=== PATIENT | female | born 1990 | race Caucasian/White ===

== ENCOUNTER 2018-01-17 13:19 | Emergency (ER) | payer OTHER ==
[2018-01-17 13:57] LABS: BILIRUBIN,URINE NEGATIVE (NEG); CLARITY,URINE CLEAR; COLOR,URINE YELLOW; GLUCOSE,URINE NEGATIVE (NEG); NITRITE,URINE NEGATIVE (NEG); PROTEIN,URINE NEGATIVE (NEG-TRACE)
[2018-01-17 13:58] LABS: URINE HCG POC HCG NEGATIVE (Negative)
[2018-01-17] MEDS ORDERED: diphenhydrAMINE 50 MG/ML VIAL (14:09)
[2018-01-17] MEDS ORDERED: METOCLOPRAMIDE HCL 10 MG/2 ML VIAL. (14:10)
[2018-01-17 14:11] LABS: BACTERIA,URINE MOD /HPF (0-FEW); RBC,URINE 0 /HPF (0-2); SQUAMOUS EPITHELIAL CELL,UR MANY /LPF
[2018-01-17 14:45] LABS: ANION GAP 6 (6-14); BLOOD UREA NITROGEN 13 mg/dL (7-20); BUN/CREATININE RATIO 16 (6-20); CALCIUM 9.6 mg/dL (8.5-10.1); CARBON DIOXIDE 30 mmol/L (21-32); CHLORIDE 105 mmol/L (98-107); CREATININE 0.8 mg/dL (0.6-1.0); GFR 85.4; GLUCOSE 105 mg/dL (70-99); POTASSIUM 4.7 mmol/L (3.5-5.1); SODIUM 141 mmol/L (136-145)
[2018-01-17] MEDS: diphenhydrAMINE 50 MG/ML VIAL IVP (14:51)
[2018-01-17] MEDS: METOCLOPRAMIDE HCL 10 MG/2 ML VIAL. IV (14:51)
[2018-01-17] MEDS: IV NORMAL SALINE 1000ML BAG 1,000 ML IV (14:51)
[2018-01-17 14:54] LABS: ALBUMIN 4.3 g/dL (3.4-5.0); ALBUMIN/GLOBULIN RATIO 1.3 (1.0-1.7); ALK PHOS 34 U/L (46-116); ALT (SGPT) 21 U/L (14-59); AST (SGOT) 19 U/L (15-37); TOTAL BILIRUBIN 1.2 mg/dL (0.2-1.0); TOTAL PROTEIN 7.7 g/dL (6.4-8.2)
[2018-01-17 15:02] LABS: ADD MAN DIFF? NO
[2018-01-17 15:04] LABS: BASO % 0 % (0-3); EOS # 0.1 x10^3/uL (0.0-0.7); EOS % 1 % (0-3); HEMATOCRIT 40.1 % (36.0-47.0); LYMPH # 1.5 x10^3/uL (1.0-4.8); LYMPH % 17 % (24-48); MEAN CORPUSCULAR HEMOGLOBIN 33 pg (25-35); MEAN CORPUSCULAR HGB CONC 35 g/dL (31-37); MEAN CORPUSCULAR VOLUME 95 fL (79-100); MONO # 0.3 x10^3/uL (0.0-1.1); MONO % 4 % (0-9); NEUT # 6.6 x10^3uL (1.8-7.7); NEUT % 78 % (31-73); PLATELET COUNT 230 x10^3/uL (140-400); RED BLOOD COUNT 4.22 x10^6/uL (3.50-5.40); RED CELL DISTRIBUTION WIDTH 13.4 % (11.5-14.5); WHITE BLOOD COUNT 8.5 x10^3/uL (4.0-11.0)
[2018-01-17] MEDS: KETOROLAC 30 MG/ML INJ. IV (16:15)
== END 2018-01-17 16:20 | disposition home or self-care (01) ==
LOC: ER 16:20
DX: R51 Headache (principal); N39.0 Urinary tract infection, site not specified
CPT/HCPCS: 36415; 70450; 80053; 81001; 81025; 85025; 96361; 96374; 96375; 99285-25; J1200; J1885; J2765; J7030

== ENCOUNTER 2018-10-24 06:19 | Day surgery (SDC) | payer OTHER ==
[~2018-10-24] VITALS: Ht 154.9 cm; Wt 63.5 kg
[~2018-10-24 06:19] MED LIST: NITR100C62 PO
[2018-10-24] MEDS ORDERED: IV NORMAL SALINE 1000ML BAG 1,000 ML IV SCH (06:41)
[2018-10-24 07:25] LABS: BASO % 0 % (0-3); EOS # 0.1 x10^3/uL (0.0-0.7); EOS % 1 % (0-3); HEMATOCRIT 36.8 % (36.0-47.0); HEMOGLOBIN 12.3 g/dL (12.0-15.5); LYMPH % 21 % (24-48); MEAN CORPUSCULAR HEMOGLOBIN 31 pg (25-35); MEAN CORPUSCULAR HGB CONC 33 g/dL (31-37); MEAN CORPUSCULAR VOLUME 93 fL (79-100); MONO # 0.5 x10^3/uL (0.0-1.1); MONO % 6 % (0-9); NEUT # 6.7 x10^3uL (1.8-7.7); NEUT % 72 % (31-73); PLATELET COUNT 236 x10^3/uL (140-400); RED BLOOD COUNT 3.94 x10^6/uL (3.50-5.40); RED CELL DISTRIBUTION WIDTH 13.3 % (11.5-14.5); WHITE BLOOD COUNT 9.3 x10^3/uL (4.0-11.0)
[2018-10-24 07:38] LABS: PROTHROMBIN TIME PATIENT 13.5 SEC (11.7-14.0)
[2018-10-24] MEDS ORDERED: KETOROLAC 30 MG/ML VIAL. IV ONE (07:45)
[2018-10-24] MEDS ORDERED: fentaNYL PF VIAL 100 MCG/2 ML VIAL ONE (07:53)
[2018-10-24] MEDS ORDERED: ONDANSETRON PF 4 MG/2 ML VIAL. ONE ×2 (07:53→10:06)
[2018-10-24 07:58] LABS: CREATININE 0.7 mg/dL (0.6-1.0); GFR 98.9; POTASSIUM 3.9 mmol/L (3.5-5.1)
[2018-10-24 08:04] LABS: ALBUMIN 3.8 g/dL (3.4-5.0); ALBUMIN/GLOBULIN RATIO 1.1 (1.0-1.7); TOTAL BILIRUBIN 0.9 mg/dL (0.2-1.0); TOTAL PROTEIN 7.4 g/dL (6.4-8.2)
--- NOTE | 2018-10-24 08:12 | PHYS DOC ---
Past Medical History Past Medical History: Other Additional Past Medical Histor: SUBSTANCE ABUSE Past Surgical History: No Surgical History Alcohol Use: Occasionally Drug Use: None Adult General Chief Complaint Chief Complaint: VAGINAL BLEEDING HPI HPI Patient is a 28 year old female presented to ER today for evaluation of pelvic pain and vaginal bleeding. Patient says her last menstrual period was on Aug 11 2018. Patient is . Patient started having spotting on last , she went to see her OB doctor at [facility], had a pelvic ultrasound done, did not show an IUP. Patient was told to have the expected miscarry at home. She woke up at 3 AM this morning with severe pelvic pain, vaginal bleeding. Patient passed a large round tissue at home and then lots of blood clots. She has severe pelvic cramping, coming in wave so she came in here for evaluation. Patient denies any fever. This is her first . Review of Systems Review of Systems Constitutional: Denies fever or chills [] Eyes: Denies change in visual acuity, redness, or eye pain [] HENT: Denies nasal congestion or sore throat [] Respiratory: Denies cough or shortness of breath [] Cardiovascular: No additional information not addressed in HPI [] GI: Denies abdominal pain, nausea, vomiting, bloody stools or diarrhea [] : Positive for pelvic pain, vaginal bleeding. Musculoskeletal: Denies back pain or joint pain [] Integument: Denies rash or skin lesions [] Neurologic: Denies headache, focal weakness or sensory changes [] Endocrine: Denies polyuria or polydipsia [] All other systems were reviewed and found to be within normal limits, except as documented in this note. Current Medications Current Medications Current Medications Medications (Trade) Dose Ordered Sig/[facility] Start Time Stop Time Status Last Admin Dose Admin Fentanyl Citrate (Fentanyl 2ml Vial) 50 mcg 1X ONCE 10/24/18 08:30 10/24/18 08:33 DC 10/24/18 08:38 50 MCG Ketorolac Tromethamine (Toradol 30mg Vial) 30 mg 1X ONCE 10/24/18 07:45 10/24/18 07:46 DC 10/24/18 07:46 30 MG Ondansetron HCl (Zofran) 4 mg 1X ONCE 10/24/18 08:30 10/24/18 08:33 DC 10/24/18 08:37 4 MG Sodium Chloride 1,000 ml @ 100 mls/hr Q10H 10/24/18 06:41 10/24/18 16:40 10/24/18 07:14 100 MLS/HR Allergies Allergies Allergies Coded Allergies Type Severity Reaction Last Updated Verified No Known Drug Allergies 01/17/18 No Physical Exam Physical Exam Constitutional: Well developed, well nourished, no acute distress, non-toxic appearance. [] HENT: Normocephalic, atraumatic, bilateral external ears normal, oropharynx moist, no oral exudates, nose normal. [] Eyes: PERRLA, EOMI, conjunctiva normal, no discharge. [] Neck: Normal range of motion, no tenderness, supple, no stridor. [] Cardiovascular:Heart rate regular rhythm, no murmur [] Lungs & Thorax: Bilateral breath sounds clear to auscultation [] Abdomen: Bowel sounds normal, soft, there is suprapubic tenderness , no masses, no pulsatile masses. [] Skin: Warm, dry, no erythema, no rash. [] Back: No tenderness, no CVA tenderness. [] Extremities: No tenderness, no cyanosis, no clubbing, ROM intact, no edema. [] Neurologic: Alert and oriented X 3, normal motor function, normal sensory function, no focal deficits noted. [] Psychologic: Affect normal, judgement normal, mood normal. [] Pelvic EXAM: Normal external vaginal area, LOT OF BLOOD CLOTS IN VAGINAL VAULT, CERVIX IS OPEN AT FINGER TIP, ACTIVELY BLEEDING. Current Patient Data Vital Signs Vital Signs Date Time Temp Pulse Resp B/P (MAP) Pulse Ox O2 Delivery O2 Flow Rate FiO2 10/24/18 07:16 82 18 118/71 (87) 100 Room Air 10/24/18 06:39 98.0 98.0 Lab Values Laboratory Tests Test 10/24/18 07:00 White Blood Count 9.3 x10^3/uL (4.0-11.0) Red Blood Count 3.94 x10^6/uL (3.50-5.40) Hemoglobin 12.3 g/dL (12.0-15.5) Hematocrit 36.8 % (36.0-47.0) Mean Corpuscular Volume 93 fL (79-100) Mean Corpuscular Hemoglobin 31 pg (25-35) Mean Corpuscular Hemoglobin Concent 33 g/dL (31-37) Red Cell Distribution Width 13.3 % (11.5-14.5) Platelet Count 236 x10^3/uL (140-400) Neutrophils (%) (Auto) 72 % (31-73) Lymphocytes (%) (Auto) 21 % (24-48) L Monocytes (%) (Auto) 6 % (0-9) Eosinophils (%) (Auto) 1 % (0-3) Basophils (%) (Auto) 0 % (0-3) Neutrophils # (Auto) 6.7 x10^3uL (1.8-7.7) Lymphocytes # (Auto) 2.0 x10^3/uL (1.0-4.8) Monocytes # (Auto) 0.5 x10^3/uL (0.0-1.1) Eosinophils # (Auto) 0.1 x10^3/uL (0.0-0.7) Basophils # (Auto) 0.0 x10^3/uL (0.0-0.2) Prothrombin Time 13.5 SEC (11.7-14.0) Prothrombin Time INR 1.1 (0.8-1.1) PTT 27 SEC (24-38) Maternal Serum HCG Beta Subunit 58955 mIU/mL (0-5) H Sodium Level 138 mmol/L (136-145) Potassium Level 3.9 mmol/L (3.5-5.1) Chloride Level 103 mmol/L (98-107) Carbon Dioxide Level 27 mmol/L (21-32) Anion Gap 8 (6-14) Blood Urea Nitrogen 12 mg/dL (7-20) Creatinine 0.7 mg/dL (0.6-1.0) Estimated GFR (Cockcroft-Gault) 98.9 BUN/Creatinine Ratio 17 (6-20) Glucose Level 108 mg/dL (70-99) H Calcium Level 9.0 mg/dL (8.5-10.1) Total Bilirubin 0.9 mg/dL (0.2-1.0) Aspartate Amino Transferase (AST) 16 U/L (15-37) Alanine Aminotransferase (ALT) 15 U/L (14-59) Alkaline Phosphatase 27 U/L (46-116) L Total Protein 7.4 g/dL (6.4-8.2) Albumin 3.8 g/dL (3.4-5.0) Albumin/Globulin Ratio 1.1 (1.0-1.7) Laboratory Tests 10/24/18 07:00 Laboratory Tests 10/24/18 07:00 EKG EKG [] Radiology/Procedures Radiology/Procedures [][facility] [address] [place] [address] IMAGING REPORT Signed PATIENT: ALFONSO PROCTOR ACCOUNT: [id number] : 1990 LOCATION: ER AGE: 28 SEX: F EXAM STATUS: REG ER ORD. PHYSICIAN: EMILIA FLETCHER DO REASON: pelvic pain, vaginal bleeding, , LMP: 08/11/18 PROCEDURE: OB <14 WKS W/TV Obstetrical ultrasound less than 14 weeks with transvaginal imaging History: Bleeding and pain in early Comparison none Findings: Multiple transabdominal sonographic images of pelvis are submitted. Uterus measured 9.8 x 5.7 x 5.4 cm. Transvaginal ultrasound: Multiple transvaginal sonographic images of the pelvis are submitted. Uterus measured 10.9 x 5.6 cm. There is a large area of echogenicity in the uterus although does not have appearance of gestational sac, diffuse internal echoes. This measures about 5.3 x 4.4 x 4.1 cm centered in the region of expected endometrial cavity although endometrium is poorly distinguished. There is some very mild internal vascularity color Doppler imaging. Left maternal ovary measured 2.8 x 1.2 x 2.4 cm with normal color flow in the resistance vascularity, no associated mass or fluid collection. Right ovary measured 3.4 x 1.9 x 2.8 cm with normal color flow and low resistance vascularity, no mass or fluid collection. There is no significant free fluid. Impression 1. There is a large masslike lesion in the region of the endometrial cavity which does not have characteristics of a gestational sac, may be a mass or large blood clot. No normal appearing intrauterine is demonstrated. There is no abnormality of the ovaries and there is no significant free fluid. DICTATED and SIGNED BY: CHAZ SAINI MD DATE: 10/24/18 0810 Course & Med Decision Making Course & Med Decision Making Pertinent Labs and Imaging studies reviewed. (See chart for details) Dr. Briseno, LIFESTYLE COORDINATOR, was consulted, will come to ER to take patient to OPERATING ROOM FOR D and C procedure. She will discharge patient home from Recovery room or admit patient for observation depend on the outcome of her procedure. Dragon Disclaimer Dragon Disclaimer This electronic medical record was generated, in whole or in part, using a voice recognition dictation system. Departure Departure Impression: Primary Impression: Miscarriage Condition: STABLE Referrals: NO PCP (PCP) EMILIA FLETCHER DO Oct 24, 2018 08:12
--- NOTE | 2018-10-24 08:18 | RAD ---
Obstetrical ultrasound less than 14 weeks with transvaginal imaging History: Bleeding and pain in early Comparison none Findings: Multiple transabdominal sonographic images of pelvis are submitted. Uterus measured 9.8 x 5.7 x 5.4 cm. Transvaginal ultrasound: Multiple transvaginal sonographic images of the pelvis are submitted. Uterus measured 10.9 x 5.6 cm. There is a large area of echogenicity in the uterus although does not have appearance of gestational sac, diffuse internal echoes. This measures about 5.3 x 4.4 x 4.1 cm centered in the region of expected endometrial cavity although endometrium is poorly distinguished. There is some very mild internal vascularity color Doppler imaging. Left maternal ovary measured 2.8 x 1.2 x 2.4 cm with normal color flow in the resistance vascularity, no associated mass or fluid collection. Right ovary measured 3.4 x 1.9 x 2.8 cm with normal color flow and low resistance vascularity, no mass or fluid collection. There is no significant free fluid. Impression 1. There is a large masslike lesion in the region of the endometrial cavity which does not have characteristics of a gestational sac, may be a mass or large blood clot. No normal appearing intrauterine is demonstrated. There is no abnormality of the ovaries and there is no significant free fluid.
[2018-10-24] MEDS ORDERED: ONDANSETRON PF 4 MG/2 ML VIAL. IV ONE (08:30)
[2018-10-24] MEDS ORDERED: fentaNYL PF VIAL 100 MCG/2 ML VIAL IV ONE (08:30)
[2018-10-24] MEDS ORDERED: IV RINGERS,LACTATED 1000ML 1,000 ML IV SCH (09:57)
[2018-10-24] MEDS ORDERED: PROCHLORPERAZINE 10 MG/2 ML VIAL. IV PRN (10:00)
[2018-10-24] MEDS ORDERED: fentaNYL PF VIAL 100 MCG/2 ML VIAL IV PRN ×2 (10:00)
[2018-10-24] MEDS ORDERED: ONDANSETRON PF 4 MG/2 ML VIAL. IV PRN (10:00)
[2018-10-24] MEDS ORDERED: MORPHINE SULFATE 2 MG/ML VIAL. IV PRN (10:00)
[2018-10-24] MEDS ORDERED: HYDROmorphone 2 MG/ML VIAL IV PRN (10:00)
[2018-10-24] MEDS ORDERED: miSOPROStol 200 MCG TABLET ONE (10:02)
--- NOTE | 2018-10-24 10:05 | HP ---
ADMIT DATE: 10/24/2018 CHIEF COMPLAINT AND HISTORY OF PRESENT ILLNESS: This patient is a 28-year-old white female, who is 1, para 0, complaining of having abdominal pain, pelvic pain, vaginal bleeding. She comes into the Emergency Room with a history of being , passed a fetus at home and having heavy bleeding at this time. She has had a sonogram, which shows no intrauterine at this time, but the patient does have heavy bleeding. PHYSICAL EXAMINATION: VITAL SIGNS: Reveals the vital signs being stable. HEAD, EYES, NOSE, THROAT: Within normal limits. GENERAL: The patient is in acute distress because of the pelvic pain. PELVIC: Shows external genitalia being normal. Has a moderate vaginal bleeding at this time passing clots. On bimanual exam, uterus is quite tender. No adnexal masses are palpable. EXTREMITIES: No edema of feet. IMPRESSION: Miscarriage retained products of conception. PLAN: D and C, suction curettage. CARMINA HUBBARD MD DR: SUSIE/gayathri JOB#: [id number] / [id number]
[2018-10-24] MEDS ORDERED: LIDOCAINE 2% PF 5 ML VIAL. ONE (10:06)
[2018-10-24] MEDS ORDERED: SEVOFLURANE 16 TO 30 MINUTES. IH ONE (10:06)
[2018-10-24] MEDS ORDERED: KETOROLAC 30 MG/ML INJ FOR OR. INJ ONE (10:06)
[2018-10-24] MEDS ORDERED: DEXAMETHASONE SOD PHOS 4 MG/ML VIAL ONE (10:06)
[2018-10-24] MEDS ORDERED: PROPOFOL 20 ML IV ONE (10:06)
[2018-10-24] MEDS ORDERED: ceFAZolin 1GM IVPB FOR OMNI 100 ML IV ONE (11:03)
[2018-10-24] MEDS ORDERED: OXYTOCIN 10 UNIT/ML VIAL. ONE ×2 (11:33→11:34)
--- NOTE | 2018-10-24 11:42 | PDOC ---
GENERAL General: 28 yrs old lady with miscarriage and Bleeding. Pt seen in ER and scheduled for D&C Suction Curettage for Retained products of Conception VITAL SIGNS Vital Signs: Vital Signs Date Time Temp Pulse Resp B/P (MAP) Pulse Ox O2 Delivery O2 Flow Rate FiO2 10/24/18 10:12 97.0 78 16 107/59 100 Room Air 97.0 ALLERGIES Allergies: Allergies Coded Allergies Type Severity Reaction Last Updated Verified No Known Drug Allergies 01/17/18 No MEDS Medications: Current Medications Medications (Trade) Dose Ordered Sig/Dl Start Time Stop Time Status Last Admin Dose Admin Cefazolin Sodium 100 ml @ As Directed STK-MED ONCE 10/24/18 11:03 10/24/18 11:04 DC Dexamethasone Sodium Phosphate (Decadron) 4 mg STK-MED ONCE 10/24/18 10:06 10/24/18 10:07 DC Fentanyl Citrate (Fentanyl 2ml Vial) 50 mcg PRN Q5MIN PRN 10/24/18 10:00 10/25/18 09:59 Hydromorphone HCl (Dilaudid) 0.5 mg PRN Q10MIN PRN 10/24/18 10:00 10/25/18 09:59 Ketorolac Tromethamine (Toradol 30mg Vial) 30 mg 1X ONCE 10/24/18 07:45 10/24/18 07:46 DC 10/24/18 07:46 30 MG Ketorolac Tromethamine (Toradol For Or Only) 30 mg STK-MED ONCE 10/24/18 10:06 10/24/18 10:07 DC Lidocaine HCl (Lidocaine Pf 2% Vial) 5 ml STK-MED ONCE 10/24/18 10:06 10/24/18 10:07 DC Misoprostol (Cytotec 200mcg Tab) 200 mcg STK-MED ONCE 10/24/18 10:02 10/24/18 11:02 DC Morphine Sulfate (Morphine Sulfate) 1 mg PRN Q10MIN PRN 10/24/18 10:00 10/25/18 09:59 Ondansetron HCl (Zofran) 4 mg STK-MED ONCE 10/24/18 10:06 10/24/18 10:07 DC Oxytocin (Pitocin) 10 unit STK-MED ONCE 10/24/18 11:34 10/24/18 11:35 DC Prochlorperazine Edisylate (Compazine) 5 mg PACU PRN PRN 10/24/18 10:00 10/25/18 09:59 Propofol 20 ml @ As Directed STK-MED ONCE 10/24/18 10:06 10/24/18 10:07 DC Ringer's Solution 1,000 ml @ 30 mls/hr Q24H 10/24/18 09:57 10/24/18 21:56 Sevoflurane (Ultane) 15 ml STK-MED ONCE 10/24/18 10:06 10/24/18 10:07 DC Sodium Chloride 1,000 ml @ 100 mls/hr Q10H 10/24/18 06:41 10/24/18 16:40 10/24/18 07:14 100 MLS/HR LAB Lab: Laboratory Tests Test 10/24/18 07:00 White Blood Count 9.3 x10^3/uL (4.0-11.0) Red Blood Count 3.94 x10^6/uL (3.50-5.40) Hemoglobin 12.3 g/dL (12.0-15.5) Hematocrit 36.8 % (36.0-47.0) Mean Corpuscular Volume 93 fL (79-100) Mean Corpuscular Hemoglobin 31 pg (25-35) Mean Corpuscular Hemoglobin Concent 33 g/dL (31-37) Red Cell Distribution Width 13.3 % (11.5-14.5) Platelet Count 236 x10^3/uL (140-400) Neutrophils (%) (Auto) 72 % (31-73) Lymphocytes (%) (Auto) 21 % (24-48) Monocytes (%) (Auto) 6 % (0-9) Eosinophils (%) (Auto) 1 % (0-3) Basophils (%) (Auto) 0 % (0-3) Neutrophils # (Auto) 6.7 x10^3uL (1.8-7.7) Lymphocytes # (Auto) 2.0 x10^3/uL (1.0-4.8) Monocytes # (Auto) 0.5 x10^3/uL (0.0-1.1) Eosinophils # (Auto) 0.1 x10^3/uL (0.0-0.7) Basophils # (Auto) 0.0 x10^3/uL (0.0-0.2) Prothrombin Time 13.5 SEC (11.7-14.0) Prothromb Time International Ratio 1.1 (0.8-1.1) Activated Partial Thromboplast Time 27 SEC (24-38) Maternal Serum HCG Beta Subunit 54590 mIU/mL (0-5) Sodium Level 138 mmol/L (136-145) Potassium Level 3.9 mmol/L (3.5-5.1) Chloride Level 103 mmol/L (98-107) Carbon Dioxide Level 27 mmol/L (21-32) Anion Gap 8 (6-14) Blood Urea Nitrogen 12 mg/dL (7-20) Creatinine 0.7 mg/dL (0.6-1.0) Estimated GFR (Cockcroft-Gault) 98.9 BUN/Creatinine Ratio 17 (6-20) Glucose Level 108 mg/dL (70-99) Calcium Level 9.0 mg/dL (8.5-10.1) Total Bilirubin 0.9 mg/dL (0.2-1.0) Aspartate Amino Transf (AST/SGOT) 16 U/L (15-37) Alanine Aminotransferase (ALT/SGPT) 15 U/L (14-59) Alkaline Phosphatase 27 U/L (46-116) Total Protein 7.4 g/dL (6.4-8.2) Albumin 3.8 g/dL (3.4-5.0) Albumin/Globulin Ratio 1.1 (1.0-1.7) ASSESSMENT & PLAN A&P Under GA D&C Suction Curettage done. Will see her in Office in 2 weeks for Postop Care and Treatment. CARMINA HUBBARD MD Oct 24, 2018 11:42
--- NOTE | 2018-10-24 11:49 | PDOC ---
Date and Time 2gm was given IV push at 11:09. There was not an order in [employer] to acknowledge/administer. VO surgeon Current Medications Current Medications Sodium Chloride 1,000 ml @ 100 mls/hr Q10H IV Last administered on 10/24/18at 07:14; Start 10/24/18 at 06:41; Stop 10/24/18 at 16:40 Ketorolac Tromethamine (Toradol 30mg Vial) 30 mg 1X ONCE IV Last administered on 10/24/18at 07:46; Start 10/24/18 at 07:45; Stop 10/24/18 at 07:46; Status DC Ondansetron HCl (Zofran) 4 mg STK-MED ONCE .ROUTE ; Start 10/24/18 at 07:53; Stop 10/24/18 at 07:54; Status DC Fentanyl Citrate (Fentanyl 2ml Vial) 100 mcg STK-MED ONCE .ROUTE ; Start 10/24/18 at 07:53; Stop 10/24/18 at 07:54; Status DC Ondansetron HCl (Zofran) 4 mg 1X ONCE IV Last administered on 10/24/18at 08:37; Start 10/24/18 at 08:30; Stop 10/24/18 at 08:33; Status DC Fentanyl Citrate (Fentanyl 2ml Vial) 50 mcg 1X ONCE IV Last administered on 10/24/18at 08:38; Start 10/24/18 at 08:30; Stop 10/24/18 at 08:33; Status DC Ondansetron HCl (Zofran) 4 mg PRN Q6HRS PRN IV NAUSEA/VOMITING; Start 10/24/18 at 10:00; Stop 10/25/18 at 09:59 Fentanyl Citrate (Fentanyl 2ml Vial) 25 mcg PRN Q5MIN PRN IV MILD PAIN; Start 10/24/18 at 10:00; Stop 10/25/18 at 09:59 Fentanyl Citrate (Fentanyl 2ml Vial) 50 mcg PRN Q5MIN PRN IV MODERATE TO SEVERE PAIN; Start 10/24/18 at 10:00; Stop 10/25/18 at 09:59 Morphine Sulfate (Morphine Sulfate) 1 mg PRN Q10MIN PRN IV SEVERE PAIN; Start 10/24/18 at 10:00; Stop 10/25/18 at 09:59 Ringer's Solution 1,000 ml @ 30 mls/hr Q24H IV ; Start 10/24/18 at 09:57; Stop 10/24/18 at 21:56 Hydromorphone HCl (Dilaudid) 0.5 mg PRN Q10MIN PRN IV SEV PAIN, Second choice; Start 10/24/18 at 10:00; Stop 10/25/18 at 09:59 Prochlorperazine Edisylate (Compazine) 5 mg PACU PRN PRN IV NAUSEA, MRX1; Start 10/24/18 at 10:00; Stop 10/25/18 at 09:59 Propofol 20 ml @ As Directed STK-MED ONCE IV ; Start 10/24/18 at 10:06; Stop 10/24/18 at 10:07; Status DC Ketorolac Tromethamine (Toradol For Or Only) 30 mg STK-MED ONCE INJ ; Start 10/24/18 at 10:06; Stop 10/24/18 at 10:07; Status DC Lidocaine HCl (Lidocaine Pf 2% Vial) 5 ml STK-MED ONCE .ROUTE ; Start 10/24/18 at 10:06; Stop 10/24/18 at 10:07; Status DC Ondansetron HCl (Zofran) 4 mg STK-MED ONCE .ROUTE ; Start 10/24/18 at 10:06; Stop 10/24/18 at 10:07; Status DC Dexamethasone Sodium Phosphate (Decadron) 4 mg STK-MED ONCE .ROUTE ; Start 10/24/18 at 10:06; Stop 10/24/18 at 10:07; Status DC Sevoflurane (Ultane) 15 ml STK-MED ONCE IH ; Start 10/24/18 at 10:06; Stop 10/24/18 at 10:07; Status DC Misoprostol (Cytotec 200mcg Tab) 200 mcg STK-MED ONCE .ROUTE ; Start 10/24/18 at 10:02; Stop 10/24/18 at 11:02; Status DC Cefazolin Sodium 100 ml @ As Directed STK-MED ONCE IV ; Start 10/24/18 at 11:03; Stop 10/24/18 at 11:04; Status DC Active Scripts Active Macrobid 100 Mg Capsule (Nitrofurantoin Monohyd/M-Cryst) 100 Mg Capsule 1 Cap PO BID 7 Days Pertinent Labs/Test Laboratory Tests Test 10/24/18 07:00 White Blood Count 9.3 x10^3/uL (4.0-11.0) Red Blood Count 3.94 x10^6/uL (3.50-5.40) Hemoglobin 12.3 g/dL (12.0-15.5) Hematocrit 36.8 % (36.0-47.0) Mean Corpuscular Volume 93 fL (79-100) Mean Corpuscular Hemoglobin 31 pg (25-35) Mean Corpuscular Hemoglobin Concent 33 g/dL (31-37) Red Cell Distribution Width 13.3 % (11.5-14.5) Platelet Count 236 x10^3/uL (140-400) Neutrophils (%) (Auto) 72 % (31-73) Lymphocytes (%) (Auto) 21 % (24-48) Monocytes (%) (Auto) 6 % (0-9) Eosinophils (%) (Auto) 1 % (0-3) Basophils (%) (Auto) 0 % (0-3) Neutrophils # (Auto) 6.7 x10^3uL (1.8-7.7) Lymphocytes # (Auto) 2.0 x10^3/uL (1.0-4.8) Monocytes # (Auto) 0.5 x10^3/uL (0.0-1.1) Eosinophils # (Auto) 0.1 x10^3/uL (0.0-0.7) Basophils # (Auto) 0.0 x10^3/uL (0.0-0.2) Prothrombin Time 13.5 SEC (11.7-14.0) Prothromb Time International Ratio 1.1 (0.8-1.1) Activated Partial Thromboplast Time 27 SEC (24-38) Maternal Serum HCG Beta Subunit 92405 mIU/mL (0-5) Sodium Level 138 mmol/L (136-145) Potassium Level 3.9 mmol/L (3.5-5.1) Chloride Level 103 mmol/L (98-107) Carbon Dioxide Level 27 mmol/L (21-32) Anion Gap 8 (6-14) Blood Urea Nitrogen 12 mg/dL (7-20) Creatinine 0.7 mg/dL (0.6-1.0) Estimated GFR (Cockcroft-Gault) 98.9 BUN/Creatinine Ratio 17 (6-20) Glucose Level 108 mg/dL (70-99) Calcium Level 9.0 mg/dL (8.5-10.1) Total Bilirubin 0.9 mg/dL (0.2-1.0) Aspartate Amino Transf (AST/SGOT) 16 U/L (15-37) Alanine Aminotransferase (ALT/SGPT) 15 U/L (14-59) Alkaline Phosphatase 27 U/L (46-116) Total Protein 7.4 g/dL (6.4-8.2) Albumin 3.8 g/dL (3.4-5.0) Albumin/Globulin Ratio 1.1 (1.0-1.7) Laboratory Tests Test 10/24/18 07:00 White Blood Count 9.3 x10^3/uL (4.0-11.0) Red Blood Count 3.94 x10^6/uL (3.50-5.40) Hemoglobin 12.3 g/dL (12.0-15.5) Hematocrit 36.8 % (36.0-47.0) Mean Corpuscular Volume 93 fL (79-100) Mean Corpuscular Hemoglobin 31 pg (25-35) Mean Corpuscular Hemoglobin Concent 33 g/dL (31-37) Red Cell Distribution Width 13.3 % (11.5-14.5) Platelet Count 236 x10^3/uL (140-400) Neutrophils (%) (Auto) 72 % (31-73) Lymphocytes (%) (Auto) 21 % (24-48) Monocytes (%) (Auto) 6 % (0-9) Eosinophils (%) (Auto) 1 % (0-3) Basophils (%) (Auto) 0 % (0-3) Neutrophils # (Auto) 6.7 x10^3uL (1.8-7.7) Lymphocytes # (Auto) 2.0 x10^3/uL (1.0-4.8) Monocytes # (Auto) 0.5 x10^3/uL (0.0-1.1) Eosinophils # (Auto) 0.1 x10^3/uL (0.0-0.7) Basophils # (Auto) 0.0 x10^3/uL (0.0-0.2) Prothrombin Time 13.5 SEC (11.7-14.0) Prothromb Time International Ratio 1.1 (0.8-1.1) Activated Partial Thromboplast Time 27 SEC (24-38) Maternal Serum HCG Beta Subunit 12123 mIU/mL (0-5) Sodium Level 138 mmol/L (136-145) Potassium Level 3.9 mmol/L (3.5-5.1) Chloride Level 103 mmol/L (98-107) Carbon Dioxide Level 27 mmol/L (21-32) Anion Gap 8 (6-14) Blood Urea Nitrogen 12 mg/dL (7-20) Creatinine 0.7 mg/dL (0.6-1.0) Estimated GFR (Cockcroft-Gault) 98.9 BUN/Creatinine Ratio 17 (6-20) Glucose Level 108 mg/dL (70-99) Calcium Level 9.0 mg/dL (8.5-10.1) Total Bilirubin 0.9 mg/dL (0.2-1.0) Aspartate Amino Transf (AST/SGOT) 16 U/L (15-37) Alanine Aminotransferase (ALT/SGPT) 15 U/L (14-59) Alkaline Phosphatase 27 U/L (46-116) Total Protein 7.4 g/dL (6.4-8.2) Albumin 3.8 g/dL (3.4-5.0) Albumin/Globulin Ratio 1.1 (1.0-1.7) LAST VITALS Vital Signs Date Time Temp Pulse Resp B/P (MAP) Pulse Ox O2 Delivery O2 Flow Rate FiO2 10/24/18 10:12 97.0 78 16 107/59 100 Room Air 97.0 TEAGAN MARIO MD Oct 24, 2018 11:49
[2018-10-24] MEDS ORDERED: TRAM50TA PO (12:00)
[2018-10-24] MEDS ORDERED: traMADol 50 MG TABLET PO ONE (12:30)
[2018-10-24 12:40] VITALS: BP 102/60
--- NOTE | 2018-10-24 13:10 | OP ---
DATE OF SURGERY: PREOPERATIVE DIAGNOSIS: Incomplete . POSTOPERATIVE DIAGNOSIS: Incomplete . OPERATION PERFORMED: D and C, suction curettage. DESCRIPTION OF PROCEDURE: The patient was taken to the operating room. Under general anesthesia, she was placed in a dorsal supine position and lithotomy position. The perineal area was prepped and draped in the usual manner and weighted speculum inserted into the posterior vaginal wall. Anterior lip of the cervix held with a tenaculum. Uterine sound is used to measure the length of the uterine cavity and cervix was dilated first and a size 7 suction tip cannula was used to suction the uterus. All the curettings obtained were subjected for pathological examination. She did receive 20 units of Pitocin during the time of the procedure and at the end of the curettage, speculum tenaculum is removed. The patient was sent to the recovery room in good condition. No complications encountered at time of the procedure. Estimated blood loss about 100 mL. Postoperative condition is stable. She will be sent home and we will see her in the office in 2 weeks for postop care and treatment. CARMINA HUBBARD MD DR: SUSIE/gayathri JOB#: [id number] / [id number]
--- NOTE | 2018-10-27 08:11 | PATHOLOGY ---
[facility] Accession Number: [id number] . 01 Material submitted: . product of conception - PRODUCTS OF CONCEPTION . 01 Clinical history: . SP . 02 Diagnosis: Uterine contents, suction D and C: - Products of conception, comprised of immature chorionic villi, decidual tissue showing focal hemorrhage and acute inflammation, and hypersecretory endometrium. (JPM/db; 10/26/2018) LBQ/10/26/2018 . 02 Electronically signed: . Celso Perez MD, Pathologist NPI- [id number] . 01 Gross description: . The specimen is received in formalin, labeled "Debi Jones, products of conception" and consists of a 4 g aggregate of hemorrhagic material and brown soft villous tissue measuring 5.0 x 3.8 x 1.1 cm. No vesicular structures or parts are identified. [employer] tissue is submitted in A1-A3. (SDY; 10/25/2018) SYU/SYU . 02 Pathologist provided ICD-10: O02.89 . 02 CPT . 545252 Specimen Comment: A courtesy copy of this report has been sent to Specimen Comment: [phone], . Specimen Comment: Report sent to / DR FLETCHER Performed at: 01 [facility] [address], [place] [id number] MD Parag Soler MD Phone: [phone] Performed at: 02 [facility] [address] [place], [place] [id number] MD Celso Perez MD Phone: [phone]
== END 2018-10-24 12:53 | disposition home or self-care (01) ==
LOC: ER 06:19 → OPS 10:01
PROVIDERS: ATTEND Obstetrics & Gynecology
DX: O03.4 Incomplete spontaneous abortion without complication (principal); Z79.899 Other long term (current) drug therapy; Z79.01 Long term (current) use of anticoagulants
CPT/HCPCS: 36415; 59812; 76801; 76817; 80053; 84702; 85025; 85610; 85730; 86900; 86901; 88305; A7015; J0690; J1100; J1885; J2001; J2405; J2590; J2704; J3010; J7030